=== PATIENT | male | born 1990 | race Caucasian/White ===

== ENCOUNTER 2016-07-09 19:29 | Emergency (ER) | payer BC ==
[2016-07-09 19:35] VITALS: RESP 18; TEMP 98.1
--- NOTE | 2016-07-09 20:13 | EDPHY ---
H & P Stated Complaint: c/o pain/swelling to L knee after injury playing soccer Time Seen by Provider: 07/09/16 20:12 Source: Patient - Medical/Surgical History Hx Asthma: No Hx Chronic Respiratory Disease: No Hx Diabetes: No Hx Cardiac Disease: No Hx Renal Disease: No Hx Cirrhosis: No Hx Alcoholism: No Hx HIV/AIDS: No Hx Splenectomy or Spleen Trauma: No Other PMH: none - Social History Smoking Status: Never smoked Constitutional: Initial Vital Signs Temperature (C) 36.7 C 07/09/16 19:32 Heart Rate 121 H 07/09/16 19:32 Respiratory Rate 18 07/09/16 19:32 Blood Pressure 143/94 H 07/09/16 19:32 O2 Sat (%) 94 07/09/16 19:32 O2 Delivery Mode Room Air Allergies/Adverse Reactions: No Known Allergies Allergy (Unverified 07/09/16 19:34) Home Medications: Medication Instructions Recorded oxyCODONE IR [Oxycodone Ir (*)] 5 - 10 mg PO Q6 PRN #20 tab 07/09/16 Medical Decision Making - Diagnostics Imaging: I viewed and interpreted images myself ED Course/Re-evaluation: CHIEF COMPLAINT: Knee injury. HISTORY OF PRESENT ILLNESS: The patient is a 25-year-old male presenting with a left knee injury. Patient was playing indoor soccer, he heard a loud pop and now has swelling and severe pain in his left knee. Patient has no other injuries or complaints at this time. REVIEW OF SYSTEMS: A 10 point review of systems was performed and is negative with the exception of the elements mentioned in the history of present illness. PHYSICAL EXAM: HR, BP, O2 Sat, RR. Temp noted General Appearance: Alert, well hydrated, appropriate, and non-toxic appearing. Head: Atraumatic without scalp tenderness or obvious injury Eyes: Pupils equal, round, reactive to light and accommodation, EOMI, no trauma , no injection. Ears: Clear bilaterally, no perforation, normal landmarks Nose: Atraumatic, no rhinorrhea, clear. Throat: There is no erythema or exudates, no lesions, normal tonsils, mucus membranes moist. Neck: Supple, 2+ carotid upstroke, nontender, no lymphadenopathy. Respiratory: No retractions, no distress, no wheezes, and no accessory muscle use. Lungs are clear to auscultation bilaterally. Cardiovascular: Regular rate and rhythm, no murmurs, rubs, or gallops. Bilateral carotid, radial, dorsalis pedis, and posterior tibial pulses intact. Good capillary refill all extremities. Gastrointestinal: Abdomen is soft, nontender, non-distended, no masses, no rebound, no guarding, no peritoneal signs. Musculoskeletal: Normal active ROM of all extremities, atraumatic. Neurological: Alert, appropriate, and interactive. The patient has normal DTRs and non-focal cranial nerves, motor, sensory, and cerebellar exam. Skin: No rashes, good turgor, no nodules on palpation. Past medical history: Denies Past surgical history: Denies Family history: Noncontributory. Social history: Single. DIAGNOSTICS/PROCEDURES/CRITICAL CARE TIME: An x-ray of tibial fracture was obtained. I viewed the images myself on the PACS system: Tibial plateau fracture. See the full radiology report in the imaging section. DIFFERENTIAL DIAGNOSIS: The differential diagnosis for the patient's knee injury included but was not limited to tibial plateau fracture, other fracture, ligamentous injury, contusion, muscular strain, and meniscus injury. MEDICAL DECISION MAKING: Patient presents with left knee injury that occurred while playing soccer. Patient heard a loud pop and now has pain and swelling. X- ray imaging was ordered. Patient received Vicodin for pain. X-ray imaging shows tibial plateau fracture. Plan for CT imaging of knee. 9:45 p.m.: Dr. Felix, Orthopedic surgery is in the ED and viewed the patient's imaging. He assessed the patient and arranged outpatient followup. Patient was placed in a knee immobilizer. - Data Points Medications Given: Discontinued Medications Hydrocodone Bitart/Acetaminophen ([place] 5/325) 2 tab PO EDNOW ONE Stop: 07/09/16 20:17 Last Admin: 07/09/16 20:52 Dose: 2 tab Departure - Departure Disposition: Home, Routine, Self-Care Clinical Impression: Tibial plateau fracture, left Qualifiers: Encounter type: initial encounter Fracture type: closed Qualified Code(s): S82.142A - Displaced bicondylar fracture of left tibia, initial encounter for closed fracture Condition: Good Instructions: Leg Fracture (ED) Additional Instructions: You have been referred to the orthopedic surgeon, Dr. Chawla. Please arrange a followup appointment. Keep knee immobilizer on until you followup with the orthopedic surgeon. Do not bear weight on the leg. Keep the leg elevated. Take 600mg Ibuprofen every 6-8 hours as needed for pain. Take pain medication as directed for severe pain. Referrals: Dane Felix MD [Medical Doctor] - As per Instructions (Orthopedic surgery) Prescriptions: oxyCODONE IR [Oxycodone Ir (*)] 5 - 10 mg PO Q6 PRN #20 tab PRN Reason: Pain, Severe Report Scribed for: Dionisio Mcintyre Report Scribed by: Lilo Durán Date of Report: 07/09/16 Time of Report: 20:17
[2016-07-09] MEDS ORDERED: HYDROCODONE/APAP 5/325 TAB PO ONE (20:16)
[2016-07-09] MEDS ORDERED: OXYCODONE/APAP 5/325MG PREPACK#4 BTL TAKEHOME ONE (21:44)
[2016-07-09 22:20] VITALS: BP 137/90; PULSE 104; O2SAT 95
--- NOTE | 2016-07-09 22:39 | GCON ---
[f rep st] CONSULTATION ORTHOPEDIC CONSULTATION DATE OF CONSULTATION: 07/09/2016 DIAGNOSIS: Left tibial plateau fracture. HISTORY OF PRESENT ILLNESS: Patient is a 25-year-old gentleman who was playing soccer. He was stru ck from behind and felt a loud pop. Evidently, his foot was trapped, and it was wrenched into a cristi maura thrust position. The patient had severe pain, was unable to bear weight. He was brought to the emergency room where evaluation was performed with radiographs. It showed a fracture of the latera l tibial plateau with a split depression. There was some question involvement of the tibial eminenc e. A CT scan was requested. Indeed, fracture fragments were driven from the articular surface to t he lateral tibial plateau distally approximately 3 cm. There was a minimally displaced fracture acr oss the tibial eminence extending into the medial tibial plateau anteriorly. PHYSICAL EXAMINATION: GENERAL: Patient is alert, oriented, and cooperative with exam. HEENT: Wit hin normal limits. CHEST: Clear. CARDIAC: Regular rate and rhythm. ABDOMEN: Nontender. EXTREM ITIES: Examination of the left leg reveals a 2+ effusion. Patient's knee felt stable to anterior d rawer and Nigel's. Patient's knee felt stable to posterior drawer. There was grade 1 or grade 2 opening to valgus stressing with apparent endpoint. Moderate tenderness laterally along the tibial plateau. No abrasions. Calf was nontender. Pulses 1+ dorsalis pedis, posterior tibialis. Sensati on is intact to all dermatomes. TREATMENT: Patient is placed into a knee immobilizer after the compression wrap from the toes up to the thigh. Ice pack administered. He is instructed on strict elevation. He is going to discuss s urgical treatment with his family. I offered him potential surgical time this as an outpat ient. Patient will get back to me concerning potential dates and scheduling. He is given a prescri ption for OxyIR 1 tab p.o. q.4 hours p.r.n. He will be touchdown weightbearing with crutches. /[id number]/MODL
== END 2016-07-09 22:20 | disposition home or self-care (01) ==
DX: S82.142A Displaced bicondylar fracture of left tibia, initial encounter for closed fracture (principal); X58.XXXA Exposure to other specified factors, initial encounter; Y99.8 Other external cause status; Y93.66 Activity, soccer
CPT/HCPCS: L1830